=== PATIENT | female | born 2000 | race Caucasian/White ===

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

== ENCOUNTER 2020-04-19 19:37 | Emergency (ER) | payer OTHER ==
[~2020-04-19] VITALS: Ht 170.2 cm; Wt 117.9 kg
[2020-04-19] MEDS ORDERED: PANTOPRAZOLE 40 MG 10ML VIAL IV STA (19:48)
[2020-04-19 20:07] LABS: BASOPHILS # (AUTO) 0.1 (0.0-0.1); BASOPHILS % 0.5 % (0.0-1.0); EOSINOPHILS # (AUTO) 0.1 (0.0-0.4); HEMATOCRIT 36.1 % (34.2-44.1); HEMOGLOBIN 10.8 g/dL (12.0-16.0); LYMPHOCYTES # (AUTO) 3.4 (1.0-3.2); MEAN CORPUSCULAR HEMOGLOBIN 23.9 pg (28-32); MEAN CORPUSCULAR HGB CONC 29.9 g/dL (31-35); MEAN CORPUSCULAR VOLUME 79.9 fL (81-99); MONOCYTES # (AUTO) 0.7 (0.2-0.8); MONOCYTES % 6.2 % (4.4-11.3); NEUTROPHILS # (AUTO) 6.3 (2.1-6.9); PLATELET COUNT 455 x10e3/uL (140-360); RED BLOOD COUNT 4.52 x10e6/uL (3.6-5.1); RED CELL DISTRIBUTION WIDTH 15.2 % (11.7-14.4)
--- NOTE | 2020-04-19 20:09 | Emergency Department Note ---
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 Historian: Patient Arrival Mode: Car Onset (how long ago): day(s) (1) Location: CENTRAL CHEST Quality: PAIN Radiation: Reports non-radiation Severity: mild Onset quality: sudden Duration (how long): day(s) (1) Timing of current episode: constant Progression: unchanged Chronicity: new Context: Denies recent illness, Denies recent surgery Relieving factors: none Exacerbating factors: other (INSPIRIATION) Associated symptoms: Reports denies other symptoms Treatments prior to arrival: none Past Medical/Family History Physician Review I have reviewed the patient's past medical and family history. Any updates have been documented here. Past Medical History Recent Fever: No Clinical Suspicion of Infectio: No New/Unexplained Change in Ment: No Past Medical History: Anxiety Other Medical History: HX OF EAR ACHES Other Surgery: skin biopsy Social History Smoking Cessation: Never Smoker Alcohol Use: None Any Illegal Drug Use: No Family History Family history of heart diseas: No Other Last Tetanus: UTD Review of Systems Review of Systems Constitutional: Reports no symptoms EENTM: Reports no symptoms Cardiovascular: Reports as per HPI Respiratory: Reports no symptoms Gastrointestinal: Reports no symptoms Genitourinary: Reports no symptoms Musculoskeletal: Reports no symptoms Integumentary: Reports no symptoms Neurological: Reports no symptoms Psychological: Reports no symptoms Endocrine: Reports no symptoms Hematological/Lymphatic: Reports no symptoms Physical Exam Related Data Allergies: Coded Allergies: No Known Allergies (Unverified , 10/21/18) Triage Vital Signs Vital Signs Date Time Temp Pulse Resp B/P (MAP) Pulse Ox O2 Delivery O2 Flow Rate FiO2 04/19/20 19:38 98.3 104 20 147/80 100 Room Air Vital signs reviewed: Yes Physical Exam CONSTITUTIONAL Constitutional: Present well-developed, Present well-nourished; Absent distressed HENT HENT: Present normocephalic, Present atraumatic, Present oropharynx clear/moist, Present nose normal HENT L/R: Present left ext ear normal, Present right ext ear normal EYES Eyes: Reports PERRL, Reports conjunctivae normal NECK Neck: Present ROM normal PULMONARY Pulmonary: Present effort normal, Present breath sounds normal CARDIOVASCULAR Cardiovascular: Present regular rhythm, Present heart sounds normal, Present capillary refill normal, Present tachycardia (102) GASTROINTESTINAL Abdominal: Present soft, Present bowel sounds normal, Present tender (MILD EPIGASTRIC) GENITOURINARY Genitourinary: Present exam deferred SKIN Skin: Present warm, Present dry MUSCULOSKELETAL Musculoskeletal: Present ROM normal NEUROLOGICAL Neurological: Present alert, Present oriented x 3, Present no gross motor or sensory deficits PSYCHOLOGICAL Psychological: Present mood/affect normal, Present judgement normal Results Laboratory Laboratory Laboratory Tests Test 04/19/20 20:14 04/19/20 19:41 Urine Color Yellow (YELLOW) Urine Clarity Hazy (CLEAR) Urine pH 5.5 (5 - 7) Urine Specific [place] >=1.030 (1.010-1.025) Urine Protein Negative (NEGATIVE) Urine Glucose (UA) Negative (NEGATIVE) Urine Ketones Negative (NEGATIVE) Urine Blood Small (NEGATIVE) Urine Nitrite Negative (NEGATIVE) Urine Bilirubin Negative (NEGATIVE) Urine Urobilinogen 0.2 mg/dL (0.2 - 1) Urine Leukocyte Esterase Negative (NEGATIVE) Urine RBC 6-10 /HPF (0-5) Urine WBC 6-10 /HPF (0-5) Urine Epithelial Cells Moderate /LPF (NONE) Urine Amorphous Sediment Few (FEW) Urine Bacteria Moderate /HPF (NONE) Urine Mucus Few (RARE) Urine Test Negative (NEGATIVE) White Blood Count 10.51 x10e3/uL (4.8-10.8) Red Blood Count 4.52 x10e6/uL (3.6-5.1) Hemoglobin 10.8 g/dL (12.0-16.0) Hematocrit 36.1 % (34.2-44.1) Mean Corpuscular Volume 79.9 fL (81-99) Mean Corpuscular Hemoglobin 23.9 pg (28-32) Mean Corpuscular Hemoglobin Concent 29.9 g/dL (31-35) Red Cell Distribution Width 15.2 % (11.7-14.4) Platelet Count 455 x10e3/uL (140-360) Neutrophils (%) (Auto) 60.0 % (38.7-80.0) Lymphocytes (%) (Auto) 32.0 % (18.0-39.1) Monocytes (%) (Auto) 6.2 % (4.4-11.3) Eosinophils (%) (Auto) 1.0 % (0.0-6.0) Basophils (%) (Auto) 0.5 % (0.0-1.0) Neutrophils # (Auto) 6.3 (2.1-6.9) Lymphocytes # (Auto) 3.4 (1.0-3.2) Monocytes # (Auto) 0.7 (0.2-0.8) Eosinophils # (Auto) 0.1 (0.0-0.4) Basophils # (Auto) 0.1 (0.0-0.1) Absolute Immature Granulocyte (auto 0.03 x10e3/uL (0-0.1) D-Dimer Quantitative (PE/DVT) 0.29 ug/mLFEU (0.00-0.45) Sodium Level 141 mmol/L (136-145) Potassium Level 3.9 mmol/L (3.5-5.1) Chloride Level 105 mmol/L (98-107) Carbon Dioxide Level 27 mmol/L (22-29) Anion Gap 12.9 mmol/L (8-16) Blood Urea Nitrogen 11 mg/dL (7-26) Creatinine 0.79 mg/dL (0.57-1.11) Estimat Glomerular Filtration Rate > 60 ML/MIN (60-) BUN/Creatinine Ratio 14 (6-25) Glucose Level 82 mg/dL (74-118) Calcium Level 9.7 mg/dL (8.4-10.2) Total Bilirubin 0.3 mg/dL (0.2-1.2) Direct Bilirubin 0.2 mg/dL (0.0-0.5) Aspartate Amino Transf (AST/SGOT) 17 IU/L (5-34) Alanine Aminotransferase (ALT/SGPT) 23 IU/L (0-55) Alkaline Phosphatase 100 IU/L (40-150) Creatine Kinase 41 IU/L (29-168) Creatine Kinase MB 0.40 ng/mL (0-5.0) Troponin I < 0.001 ng/mL (0-0.300) Total Protein 7.7 g/dL (6.5-8.1) Albumin 3.8 g/dL (3.5-5.0) Amylase Level 53 U/L (25-125) Lipase 11 U/L (8-78) Lab results reviewed: Yes Imaging Imaging results reviewed: Yes Impressions Procedure: [id number] DX/CHEST SINGLE (PORTABLE) Exam Date: 04/19/20 Exam Time: 1999 REPORT STATUS: Signed EXAMINATION: CHEST SINGLE (PORTABLE) INDICATION: ^CHEST PAIN ^[id number] ^1999 ^Y COMPARISON: None FINDINGS: AP view TUBES and LINES: None. LUNGS: Lungs are well inflated. There is no evidence of pneumonia or pulmonary edema. PLEURA: No pleural effusion or pneumothorax. HEART AND MEDIASTINUM: The cardiomediastinal silhouette is unremarkable. BONES AND SOFT TISSUES: No acute osseous lesion. Soft tissues are unremarkable. UPPER ABDOMEN: No free air under the diaphragm. IMPRESSION: No acute thoracic abnormality. Signed by: Dr. Michael Griggs MD on 04/19/2020 8:33 PM Dictated By: MICHAEL GRIGGS MD 32 Transcribed By: SORAYA on 04/19/202032 COPY TO: CAROLE JONES MD~ Procedures 12 Lead ECG Interpretation ECG Interpretation : ECG: ECG 1 Kit Planner: Interpreted by ED physician Date: Apr 19, 2020 Time: 19:42 Rhythm: sinus tachycardia Rate: tachycardia BPM: 105 QRS axis: normal ST segments normal: Yes T waves normal: Yes Other findings: no other findings Clinical Impression: non-specific ECG Assessment & Plan Medical Decision Making MDM PT WITH CHEST PAIN WORSE WITH INSPIRATION AND EPIGASTRIC TENDERNESS CBC, CMP,AMYLASE, LIPASE, D-DIMER, CARDIAC ENZYMES, CXR ORDERED TO EVAL FOR MYOCARDIAL INFARCTION, PULMONARY EMBOLISM, PNEUMONIA, PNEUMOTHORAX, PANCREATITIS, ELEVATED LFT'S PROTONIX 40 MG IV ORDERED Reassessment Reassessment time: 21:55 Reassessment PAIN IMPROVED AFTER TORADOL Assessment & Plan Final Impression: (1) Costochondritis Depart Disposition: HOME, SELF-CARE Last Vital Signs Date Time Temp Pulse Resp B/P (MAP) Pulse Ox O2 Delivery O2 Flow Rate FiO2 04/19/20 19:38 98.3 104 20 147/80 100 Room Air Medications in the ED Pantoprazole Sodium 40 mg NOW STAT IV ; Start 04/19/20 at 19:48; Stop 11/7/20 at 19:49; Status UNV CAROLE JONES MD Apr 19, 2020 20:09
[2020-04-19 20:24] LABS: ANION GAP 12.9 mmol/L (8-16); BLOOD UREA NITROGEN 11 mg/dL (7-26); BUN/CREATININE RATIO 14 (6-25); CALCIUM 9.7 mg/dL (8.4-10.2); CARBON DIOXIDE 27 mmol/L (22-29); CHLORIDE 105 mmol/L (98-107); CREATINE KINASE 41 IU/L (29-168); CREATININE, SERUM 0.79 mg/dL (0.57-1.11); EST GLOMERULAR FILTRATION RATE > 60 ML/MIN (60-); GLUCOSE 82 mg/dL (74-118); POTASSIUM 3.9 mmol/L (3.5-5.1); SODIUM 141 mmol/L (136-145)
[2020-04-19 20:25] LABS: ALBUMIN 3.8 g/dL (3.5-5.0); BILIRUBIN,DIRECT 0.2 mg/dL (0.0-0.5)
--- OUTSIDE RECORDS SUMMARY | 2020-04-19 20:33 | XMS REPORT | Continuity of Care Document ---
Author Author [facility] t Organization [facility] Address [address] [place] [address] [address] [place] [address] Phone Unavailable Care Team Providers Care Auditing Clerk Name Role Phone NO, PCP PCP Unavailable Payers Payer Name Policy Type Policy Number Effective Date Expiration Date [employer] Ppo [id number] [facility] Problems This patient has no known problems. Allergies, Adverse Reactions, Alerts This patient has no known allergies or adverse reactions. Medications This patient has no known medications. Procedures This patient has no known procedures. Encounters Start Date/Time End Date/Time [facility] Source 2019-03-30 03:09:00 2019-03-30 03:41:00 Departed Emergency Room [facility] [id number] [facility] 2018-10-21 02:16:00 2018-10-21 03:05:00 Departed Emergency Room [facility] [id number] [facility] 2018-04-06 22:28:00 2018-04-06 23:21:00 Departed Emergency Room [facility] [id number] [facility] Results Test Description Test Time Test Comments Results Result Comments Source White Blood Count 2018-10-21 02:47:00 Test Item White Blood Count (test code = 6690-2) 13.44 4.8-10.8 [facility] Dyxhj2066-03-25 02:47:00* Test Item Value Reference Range Interpretation Comments Red Blood Count (test code = 789-8) 4.20 3.6-5.1 [facility]2019-05-[facility] 02:47:00* Test Item Value Reference Range Interpretation Comments Hemoglobin (test code = 79834-9) 10.2 12.0-16.0 L [facility]ematocrit2019-05-11 02:47:00* Test Item Value Reference Range Interpretation Comments Hematocrit (test code = 4544-3) 32.9 34.2-44.1 L [facility] AllianceMean Corpuscular Ixmhib3916-37-26 02:47:00* Test Item Value Reference Range Interpretation Comments Mean Corpuscular Volume (test code = 787-2) 78.3 81-99 L [facility] Corpuscular Nybhanmvpv2251-10-87 02:47:00* Test Item Value Reference Range Interpretation Comments Mean Corpuscular Hemoglobin (test code = 785-6) 24.3 28-32 [facility] Concent 2018-10-21 02:47:00* Test Item Value Reference Range Interpretation Comments Mean Corpuscular Hemoglobin Concent (test code = 786-4) 31.0 31-35 [facility] AllianceRed Cell Distribution [id number] 02:47:00* Test Item Value Reference Range Interpretation Comments Red Cell Distribution Width (test code = 79126-7) 15.6 11.7 -14.4 H [facility] AlliancePlatelet Mlqyq9335-20-72 02:47:00* Test Item Value Reference Range Interpretation Comments Platelet Count (test code = 777-3) 428 140-360 H [facility] AllianceNeutrophils (%) (Auto)2018-10-21 02:47:00 * Test Item Value Reference Range Interpretation Comments Neutrophils (%) (Auto) (test code = 68854-4) 65.8 38.7-80.0 [facility] AllianceLymphocytes (%) (Auto)2018-10-21 02:47:00 * Test Item Value Reference Range Interpretation Comments Lymphocytes (%) (Auto) (test code = 736-9) 26.9 18.0-39.1 [facility] AllianceMonocytes (%) (Auto)2018-10-21 02:47:00* Test Item Value Reference Range Interpretation Comments Monocytes (%) (Auto) (test code = 5905-5) 5.6 4.4-11.3 [facility] AllianceEosinophils (%) (Auto)2018-10-21 02:47:00 * Test Item Value Reference Range Interpretation Comments Eosinophils (%) (Auto) (test code = 713-8) 1.0 0.0-6.0 [facility] AllianceBasophils (%) (Auto)2018-10-21 02:47:00* Test Item Value Reference Range Interpretation Comments Basophils (%) (Auto) (test code = 706-2) 0.4 0.0-1.0 [facility] AllianceIM GRANULOCYTES %2018-10-21 02:47:00* Test Item Value Reference Range Interpretation Comments IM GRANULOCYTES % (test code = IM GRANULOCYTES %) 0.3 0.0- 1.0 [facility] AllianceNeutrophils # (Auto)2018-10-21 02:47:00* Test Item Value Reference Range Interpretation Comments Neutrophils # (Auto) (test code = 751-8) 8.9 2.1-6.9 H [facility] AllianceLymphocytes # (Auto)2018-10-21 02:47:00* Test Item Value Reference Range Interpretation Comments Lymphocytes # (Auto) (test code = 28812-8) 3.6 1.0-3.2 H [facility] AllianceMonocytes # (Auto)2018-10-21 02:47:00* Test Item Value Reference Range Interpretation Comments Monocytes # (Auto) (test code = 742-7) 0.8 0.2-0.8 [facility] AllianceEosinophils # (Auto)2018-10-21 02:47:00* Test Item Value Reference Range Interpretation Comments Eosinophils # (Auto) (test code = 711-2) 0.1 0.0-0.4 [facility] AllianceBasophils # (Auto)2018-10-21 02:47:00* Test Item Value Reference Range Interpretation Comments Basophils # (Auto) (test code = 704-7) 0.1 0.0-0.1 [facility] AllianceAbsolute Immature Granulocyte (auto 2018-10-21 02:47:00* Test Item Value Reference Range Interpretation Comments Absolute Immature Granulocyte (auto (lydia t code = Absolute Immature Granulocyte (auto) 0.04 0-0.1 [facility] AllianceWhite Blood Dvtle6423-32-37 02:47:00* Test Item Value Reference Range Interpretation Comments White Blood Count (test code = 6690-2) 13.44 4.8-10.8 H [facility] AllianceRed Blood Ijgjf3584-38-64 02:47:00* Test Item Value Reference Range Interpretation Comments Red Blood Count (test code = 789-8) 4.20 3.6-5.1 [facility] AllianceHemoglobin2019-05-11 02:47:00* Test Item Value Reference Range Interpretation Comments Hemoglobin (test code = 94884-2) 10.2 12.0-16.0 L [facility] AllianceHematocrit2019-05-11 02:47:00* Test Item Value Reference Range Interpretation Comments Hematocrit (test code = 4544-3) 32.9 34.2-44.1 L [facility] AllianceMean Corpuscular Hzjxwt0611-49-73 02:47:00* Test Item Value Reference Range Interpretation Comments Mean Corpuscular Volume (test code = 787-2) 78.3 81-99 L [facility] AllianceMean Corpuscular Ocfnzguczh8186-45-38 02:47:00* Test Item Value Reference Range Interpretation Comments Mean Corpuscular Hemoglobin (test code = 785-6) 24.3 28-32 L [facility] AllianceMean Corpuscular Hemoglobin Concent 2018-10-21 02:47:00* Test Item Value Reference Range Interpretation Comments Mean Corpuscular Hemoglobin Concent (test code = 786-4) 31.0 31-35 [facility] AllianceRed Cell Distribution Ivodu1954-90-85 02:47:00* Test Item Value Reference Range Interpretation Comments Red Cell Distribution Width (test code = 49230-8) 15.6 11.7 -14.4 H [facility] AlliancePlatelet Bojqf3546-14-18 02:47:00* Test Item Value Reference Range Interpretation Comments Platelet Count (test code = 777-3) 428 140-360 H [facility] AllianceNeutrophils (%) (Auto)2018-10-21 02:47:00 * Test Item Value Reference Range Interpretation Comments Neutrophils (%) (Auto) (test code = 26299-0) 65.8 38.7-80.0 [facility] AllianceLymphocytes (%) (Auto)2018-10-21 02:47:00 * Test Item Value Reference Range Interpretation Comments Lymphocytes (%) (Auto) (test code = 736-9) 26.9 18.0-39.1 [facility] AllianceMonocytes (%) (Auto)2018-10-21 02:47:00* Test Item Value Reference Range Interpretation Comments Monocytes (%) (Auto) (test code = 5905-5) 5.6 4.4-11.3 [facility] AllianceEosinophils (%) (Auto)2018-10-21 02:47:00 * Test Item Value Reference Range Interpretation Comments Eosinophils (%) (Auto) (test code = 713-8) 1.0 0.0-6.0 [facility] AllianceBasophils (%) (Auto)2018-10-21 02:47:00* Test Item Value Reference Range Interpretation Comments Basophils (%) (Auto) (test code = 706-2) 0.4 0.0-1.0 [facility] AllianceIM GRANULOCYTES %2018-10-21 02:47:00* Test Item Value Reference Range Interpretation Comments IM GRANULOCYTES % (test code = IM GRANULOCYTES %) 0.3 0.0- 1.0 [facility] AllianceNeutrophils # (Auto)2018-10-21 02:47:00* Test Item Value Reference Range Interpretation Comments Neutrophils # (Auto) (test code = 751-8) 8.9 2.1-6.9 H [facility] AllianceLymphocytes # (Auto)2018-10-21 02:47:00* Test Item Value Reference Range Interpretation Comments Lymphocytes # (Auto) (test code = 99786-6) 3.6 1.0-3.2 H [facility] AllianceMonocytes # (Auto)2018-10-21 02:47:00* Test Item Value Reference Range Interpretation Comments Monocytes # (Auto) (test code = 742-7) 0.8 0.2-0.8 [facility] AllianceEosinophils # (Auto)2018-10-21 02:47:00* Test Item Value Reference Range Interpretation Comments Eosinophils # (Auto) (test code = 711-2) 0.1 0.0-0.4 [facility] AllianceBasophils # (Auto)2018-10-21 02:47:00* Test Item Value Reference Range Interpretation Comments Basophils # (Auto) (test code = 704-7) 0.1 0.0-0.1 [facility] AllianceAbsolute Immature Granulocyte (auto 2018-10-21 02:47:00* Test Item Value Reference Range Interpretation Comments Absolute Immature Granulocyte (auto (lydia t code = Absolute Immature Granulocyte (auto) 0.04 0-0.1 [facility]
--- NOTE | 2020-04-19 20:36 | Diagnostic Imaging Report ---
EXAMINATION: CHEST SINGLE (PORTABLE) INDICATION: ^CHEST PAIN ^[id number] ^1999 ^Y COMPARISON: None FINDINGS: AP view TUBES and LINES: None. LUNGS: Lungs are well inflated. There is no evidence of pneumonia or pulmonary edema. PLEURA: No pleural effusion or pneumothorax. HEART AND MEDIASTINUM: The cardiomediastinal silhouette is unremarkable. BONES AND SOFT TISSUES: No acute osseous lesion. Soft tissues are unremarkable. UPPER ABDOMEN: No free air under the diaphragm. IMPRESSION: No acute thoracic abnormality. Signed by: Dr. Michael Griggs MD on 04/19/2020 8:33 PM
[2020-04-19 20:50] LABS: CLARITY,URINE HAZY (CLEAR); COLOR,URINE YELLOW (YELLOW); LEUKOCYTE ESTERASE ,URINE NEGATIVE (NEGATIVE); NITRITE,URINE NEGATIVE (NEGATIVE); PROTEIN,URINE DIPSTICK NEGATIVE (NEGATIVE)
[2020-04-19 20:51] LABS: BILIRUBIN,URINE NEGATIVE (NEGATIVE); KETONES,URINE NEGATIVE (NEGATIVE); PREGNANCY TEST, URINE NEGATIVE (NEGATIVE); URINE UROBILINOGEN 0.2 mg/dL (0.2 - 1)
[2020-04-19 20:54] LABS: AMORPHOUS SEDIMENT,URINE FEW (FEW); BACTERIA,URINE MODERATE /HPF; EPITHELIAL CELLS,URINE MODERATE /LPF; MUCUS,URINE FEW (RARE)
[2020-04-19] MEDS ORDERED: KETOROLAC TROMETHAMINE 30 MG/ML VIAL IV STA (21:11)
[2020-04-19 22:07] VITALS: BP 123/72
== END 2020-04-19 22:22 | disposition home or self-care (01) ==
LOC: ER 19:46
DX: M94.0 Chondrocostal junction syndrome [Tietze] (principal); R10.816 Epigastric abdominal tenderness
CPT/HCPCS: 36415; 71045; 80048; 80076; 81001; 81025; 82150; 82550; 82553; 83690; 84484; 85025; 85379; 93005; 99283; C9113; J1885